=== PATIENT | female | born 1950 | race Two or more races ===

== ENCOUNTER 2021-07-19 04:56 | Day surgery (SDC) | payer OTHER ==
[~2021-07-19 04:56] MED LIST: ATACAND HCT 321 EACH PO; ATORVASTATIN CA10 MG PO; LEVO-T25 MCG PO; METFORMIN HCL850 M1 PO; PANTOPRAZOLE SO20 MG PO
== END 2021-07-19 11:15 | disposition home or self-care (01) ==
LOC: CIR.AMB 04:56
PROVIDERS: ATTEND Specialist
DX: K80.10 Calculus of gallbladder with chronic cholecystitis without obstruction (principal)